=== PATIENT | female | born 1990 | race American Indian/Alaskan Native ===

== ENCOUNTER 2017-10-04 20:55 | Emergency (ER) | payer MEDICAID ==
[2017-10-04 20:55] VITALS: BMI 24.5
[2017-10-04 21:16] VITALS: BP 116/73; PULSE 75; RESP 20; TEMP 98.9; O2SAT 99
--- NOTE | 2017-10-04 22:03 | C.PDOC ---
History Of Present Illness 26 y/o female with hx asthma c/o left sided upper back pain since Saturday (6 days ), intermittent shortness of breath (sometimes at rest, sometimes with exertion) , and dizzy sensation like things spinning in head) . pt seen at another hospital for same on and told she had uri and to take Tylenol. pt denies any heavy lifting or trauma.. pt had onset cp, sob, dizziness, and back pain tonight, all of which have now resolved. denies any ocp use., no leg pain or swelling. no recent prolonged immobilization. no recent surgery. Time Seen by Provider: 10/04/17 21:20 Chief Complaint (Nursing): Back Pain History Per: Patient History/Exam Limitations: no limitations Onset/Duration Of Symptoms: Days (6), Intermittent Episodes Current Symptoms Are (Timing): Gone Quality Of Discomfort: Sharp Severity: Moderate Previous Symptoms: Back Pain Associated Symptoms: None Past Medical History Vital Signs: Last Vital Signs Temp 98.9 F 10/04/17 21:10 Pulse 75 10/04/17 21:10 Resp 20 10/04/17 21:10 BP 116/73 10/04/17 21:10 Pulse Ox 99 10/04/17 22:37 - Medical History PMH: Asthma Family History: States: Unknown Family Hx - Social History Hx Tobacco Use: Yes Hx Alcohol Use: No Hx Substance Use: No - Immunization History Hx Tetanus Toxoid Vaccination: No Hx Influenza Vaccination: No Hx Pneumococcal Vaccination: No Review Of Systems Constitutional: Positive for: Fever (subjective) ENT: Negative for: Ear Pain, Throat Pain Cardiovascular: Positive for: Chest Pain (resolved). Negative for: Palpitations Respiratory: Positive for: Cough, Shortness of Breath Gastrointestinal: Negative for: Nausea, Vomiting, Abdominal Pain, Diarrhea Skin: Negative for: Rash Neurological: Negative for: Weakness, Numbness Physical Exam - Physical Exam Appears: Non-toxic, No Acute Distress Skin: Warm, Diaphoretic Head: Atraumatic, Normacephalic Eye(s): bilateral: PERRL (pupils small, reactive) Ear(s): Bilateral: Normal Nose: No Discharge Oral Mucosa: Moist Cardiovascular: Rhythm Regular, No Murmur Respiratory: No Decreased Breath Sounds, No Accessory Muscle Use, No Rales, No Rhonchi, No Wheezing Gastrointestinal/Abdominal: Soft, No Tenderness Back: Normal Inspection, No CVA Tenderness, Other (mild tenderness left upper back, worse with movement left arm) Extremity: Normal ROM, No Tenderness, No Pedal Edema, No Calf Tenderness, No Swelling Pulses: Left Radial: Normal, Right Radial: Normal Neurological/Psych: Oriented x3, Normal Speech, Normal Cognition, Normal Motor, Normal Sensation ED Course And Treatment - Laboratory Results Urine POC: Negative ECG: Interpreted By Me, Viewed By Me ECG Rhythm: Sinus Rhythm ECG Interpretation: Normal, No Acute Changes Interpretation Of ECG: nsr,no st=-t changes O2 Sat by Pulse Oximetry: 99 Medical Decision Making Medical Decision Making: pt with intermittent upper left back pain, occasional sob, cough. subjective fevers. occasional dizziness and cp- none at present. Pt with normal ekg, nsr, and normal cxr. mild tenderess to palpation in left upper back. no nystagmus. will. d/c home with uri, f/u med clinic or pmd. Disposition Counseled Patient/Family Regarding: Diagnosis, Need For Followup - Disposition [facility] Disposition: HOME/ ROUTINE Disposition Time: 23:16 Condition: STABLE Additional Instructions: Take Tylenol every 4-6 hours for pain. You may alternate with Ibuprofen. Take muscle relaxant at bedtime, makes you sleepy. Follow up with your doctor or in medical clinic in a few days,. Return for any worse symptoms. Prescriptions: Cyclobenzaprine [Cyclobenzaprine HCl] 10 mg PO HS #6 tab Instructions: Muscle Strain, Viral Upper Respiratory Infection, Adult (DC) Forms: [facility] (Norwegian), General Discharge Instructions - Clinical Impression Clinical Impression: Thoracic back sprain, Upper respiratory infection
--- NOTE | 2017-10-04 22:39 | RAD ---
EXAM: XR Chest, 2 Views CLINICAL HISTORY: 26 years old, female; Pain; Chest pain; Right-sided chest pain; Additional info: Left back pain. Chest pain TECHNIQUE: Frontal and lateral views of the chest. COMPARISON: No relevant prior studies available. FINDINGS: Lungs: Unremarkable. No consolidation. Pleural space: Unremarkable. No pneumothorax. Heart: Unremarkable. No cardiomegaly. Mediastinum: Unremarkable. Bones/joints: Unremarkable. IMPRESSION: No acute findings.
--- NOTE | 2017-10-07 12:36 | CARD ---
APPROVED REPORT EKG Measurement Heart [id number] <Conclusion> Normal sinus rhythm Normal ECG
== END 2017-10-04 23:28 | disposition home or self-care (01) ==
LOC: C.ER 20:55
DX: J06.9 Acute upper respiratory infection, unspecified (principal); S23.3XXA Sprain of ligaments of thoracic spine, initial encounter; X58.XXXA Exposure to other specified factors, initial encounter; Y92.9 Unspecified place or not applicable

== ENCOUNTER 2017-12-29 10:09 | Emergency (ER) | payer MEDICAID ==
[2017-12-29 10:09] VITALS: BMI 24.5
[2017-12-29 10:14] VITALS: RESP 18; O2SAT 100
--- NOTE | 2017-12-29 10:37 | C.PDOC ---
History Of Present Illness 27-year-old female presents to the emergency department with complaints of sore throat associated with pain with swallowing and subjective fever that started this morning. Patient has not taken anything for pain at home. She denies nausea/vomiting, back/neck pain, dizziness, chest pain, palpitations, SOB or any other associated symptoms. Time Seen by Provider: 12/29/17 10:17 Chief Complaint (Nursing): ENT Problem History Per: Patient History/Exam Limitations: None Onset/Duration Of Symptoms: Hrs Current Symptoms Are (Timing): Still Present Symptoms Have Been: Continuous Severity: Mild Past Medical History Reviewed: Historical Data, Nursing Documentation, Vital Signs Vital Signs: Last Vital Signs Temp 99.2 F 12/29/17 11:04 Pulse 90 12/29/17 11:04 Resp 18 12/29/17 11:04 BP 114/68 12/29/17 11:04 Pulse Ox 100 12/29/17 11:04 - Medical History PMH: Asthma Family History: States: No Known Family Hx - Social History Hx Tobacco Use: Yes Hx Alcohol Use: No Hx Substance Use: No - Immunization History Hx Tetanus Toxoid Vaccination: No Hx Influenza Vaccination: No Hx Pneumococcal Vaccination: No Review Of Systems Constitutional: Positive for: Fever (subjective) ENT: Positive for: Throat Pain (difficulty swallowing). Negative for: Ear Pain , Nose Congestion, Throat Swelling Cardiovascular: Negative for: Chest Pain, Palpitations Respiratory: Negative for: Cough, Shortness of Breath Gastrointestinal: Negative for: Vomiting Skin: Negative for: Rash Neurological: Negative for: Headache, Dizziness Physical Exam - Physical Exam Appears: Well, Non-toxic, No Acute Distress Skin: Normal Color, Warm, Dry, No Rash Eye(s): bilateral: Normal Inspection Nose: Normal Oral Mucosa: Moist Tongue: Normal Appearing, No Swelling Lips: Normal Appearing, No Swelling Throat: Erythema, No Exudate, No Drooling, Other (uvula midline and normal in appearance ) Neck: Normal, Normal ROM, Supple Cardiovascular: Rhythm Regular Respiratory: Normal Breath Sounds, No Rales, No Rhonchi, No Wheezing Extremity: Normal ROM Neurological/Psych: Oriented x3 ED Course And Treatment O2 Sat by Pulse Oximetry: 100 (RA) Pulse Ox Interpretation: Normal Progress Note: Patient given PO tylenol in ED. Rx for chloraseptic spray given to patient. She was instructed to follow up with PMD/clinic in 1-2 days. She understands she should return to ED if symptoms worsen. Reevaluation Time: 10:35 Reassessment Condition: Improved Disposition Counseled Patient/Family Regarding: Studies Performed, Diagnosis, Need For Followup, Rx Given - Disposition Referrals: Marcy Aldridge MD [Medical Doctor] - Disposition: HOME/ ROUTINE Disposition Time: 10:40 Condition: STABLE Additional Instructions: USE IBUPROFEN OR TYLENOL FOR PAIN, FEVER DRINK PLENTY OF FLUIDS AND GET REST FOLLOW UP WITH YOUR DOCTOR IN 1-2 DAYS RETURN TO ER IF SY,PTOMS WORSEN Instructions: Sore Throat, Adult (DC), Viral Pharyngitis (DC) Forms: [employer] (Belizean) Print Language: LUXEMBOURGISH - POA Present On Arrival: None - Clinical Impression Clinical Impression: Viral upper respiratory illness, Viral pharyngitis - Scribe Statement The provider has reviewed the documentation as recorded by the Scribe (Tracy Martinez) All medical record entries made by the Scribe were at my direction and personally dictated by me. I have reviewed the chart and agree that the record accurately reflects my personal performance of the history, physical exam, medical decision making, and the department course for this patient. I have also personally directed, reviewed, and agree with the discharge instructions and disposition.
[2017-12-29 11:05] VITALS: BP 114/68; PULSE 90; TEMP 99.2
== END 2017-12-29 11:05 | disposition home or self-care (01) ==
LOC: C.ER 10:09
DX: J02.9 Acute pharyngitis, unspecified (principal)

== ENCOUNTER 2017-12-31 11:09 | Emergency (ER) | payer MEDICAID ==
[2017-12-31 11:09] VITALS: BMI 24.5
[2017-12-31] MEDS ORDERED: cefTRIAXone (Rocephin) 250 mg Inj IM STA (11:49)
[2017-12-31] MEDS ORDERED: Penicillin G Benzathine 1.2 Mill Unit/2 ml Syr IM ONE ×2 (11:50→12:22)
--- NOTE | 2017-12-31 12:21 | C.PDOC ---
History Of Present Illness 27yo female, otherwise well, presents to ED with complaints of fever, sore throat, abdominal cramping, nausea and diarrhea. Patient states as of yesterday , she also has vaginal discharge; patient states she might have been exposed to STD's. Patient states the pain is 10/10 and she is unable to tolerate PO intake. She denies any headache, chest pain, shortness of breath, cough, or rhinorrhea. PMD: Marcy Aldridge Time Seen by Provider: 12/31/17 11:36 Chief Complaint (Nursing): Fever History Per: Patient History/Exam Limitations: no limitations Onset/Duration Of Symptoms: Days Current Symptoms Are (Timing): Still Present Location Of Pain: Throat Associated Symptoms: Fever, Sore Throat Additional History Per: Patient Past Medical History Reviewed: Historical Data, Nursing Documentation, Vital Signs Vital Signs: Last Vital Signs Temp 99.8 F H 12/31/17 12:45 Pulse 98 H 12/31/17 12:45 Resp 20 12/31/17 12:45 BP 100/66 12/31/17 12:45 Pulse Ox 100 12/31/17 12:45 - Medical History PMH: Asthma, Seizures ( A CHILD) Surgical History: No Surg Hx Family History: States: No Known Family Hx, Unknown Family Hx - Social History Hx Tobacco Use: Yes Hx Alcohol Use: No Hx Substance Use: No - Immunization History Hx Tetanus Toxoid Vaccination: No Hx Influenza Vaccination: No Hx Pneumococcal Vaccination: No Review Of Systems Except As Marked, All Systems Reviewed And Found Negative. Constitutional: Positive for: Fever ENT: Positive for: Throat Pain Cardiovascular: Negative for: Chest Pain Respiratory: Negative for: Shortness of Breath Gastrointestinal: Positive for: Nausea, Abdominal Pain (cramping), Diarrhea Musculoskeletal: Negative for: Neck Pain Neurological: Negative for: Headache Physical Exam - Physical Exam Appears: Non-toxic, Other (ill appearing) Skin: Normal Color, Warm, Dry Head: Atraumatic, Normacephalic Eye(s): bilateral: Normal Inspection, PERRL, EOMI Ear(s): Bilateral: Normal Throat: Erythema, Exudate, Other (4+ tonsilar edema) Neck: Normal ROM, Supple Lymphatic: Adenopathy (cervical) Chest: Symmetrical Cardiovascular: Rhythm Regular Respiratory: Normal Breath Sounds, No Wheezing Gastrointestinal/Abdominal: Normal Exam, Soft, No Tenderness Neurological/Psych: Oriented x3 ED Course And Treatment O2 Sat by Pulse Oximetry: 98 (RA) Pulse Ox Interpretation: Normal Medical Decision Making Medical Decision Making: Impression: URI, strep throat Plan: -- Tylenol 975 mg PO -- Zithromax 1000mg PO -- Rocephin 250mg IM -- Motrin 600mg PO -- Bicelin IM Time: 1219 Patient reports improvement in pain and is stable for discharge home. Instructed to follow up with PMD in 2-3 days. Disposition Counseled Patient/Family Regarding: Diagnosis, Need For Followup, Rx Given - Disposition Referrals: [facility] [Outside] Disposition: HOME/ ROUTINE Disposition Time: 12:19 Condition: STABLE Additional Instructions: Follow up with your doctor or our clinic. Prescriptions: Ibuprofen [Motrin] 600 mg PO TID #15 tab Instructions: Strep Throat (DC) Forms: General Discharge Instructions, [facility] (Armenian), Work Excuse - POA Present On Arrival: None - Clinical Impression Clinical Impression: Fever, Influenza-like illness, Strep pharyngitis, STD exposure - Scribe Statement The provider has reviewed the documentation as recorded by the Scribe (Darlyn Wadsworth) Provider Attestation: All medical record entries made by the Scribe were at my direction and personally dictated by me. I have reviewed the chart and agree that the record accurately reflects my personal performance of the history, physical exam, medical decision making, and the department course for this patient. I have also personally directed, reviewed, and agree with the discharge instructions and disposition.
[2017-12-31 12:46] VITALS: BP 100/66; PULSE 98; RESP 20; TEMP 99.8
[2017-12-31 13:18] VITALS: O2SAT 98
== END 2017-12-31 12:57 | disposition home or self-care (01) ==
LOC: C.ER 11:09
DX: J11.1 Influenza due to unidentified influenza virus with other respiratory manifestations (principal); R50.9 Fever, unspecified; Z20.2 Contact with and (suspected) exposure to infections with a predominantly sexual mode of transmission
CPT/HCPCS: 96372; 99285; J0561; J0696

== ENCOUNTER 2018-01-01 21:01 | Emergency (ER) | payer MEDICAID ==
[2018-01-01 21:02] VITALS: BMI 24.5
[2018-01-01 21:35] VITALS: O2SAT 100
[2018-01-01] MEDS ORDERED: Sodium Chloride 0.9% 1,000 ML IV ONE (22:02)
--- NOTE | 2018-01-01 22:02 | C.PDOC ---
Time Seen by Provider: 01/01/18 22:02 Chief Complaint (Nursing): Abdominal Pain Past Medical History Vital Signs: Last Vital Signs Temp 99 F 01/01/18 21:30 Pulse 102 H 01/01/18 21:30 Resp 20 01/01/18 21:30 BP 107/67 01/01/18 21:30 Pulse Ox 100 01/01/18 21:30 - Medical History PMH: Asthma, Seizures ( A CHILD) Family History: States: Unknown Family Hx - Social History Hx Tobacco Use: Yes Hx Alcohol Use: No Hx Substance Use: No - Immunization History Hx Tetanus Toxoid Vaccination: No Hx Influenza Vaccination: No Hx Pneumococcal Vaccination: No ED Course And Treatment O2 Sat by Pulse Oximetry: 100 Disposition Counseled Patient/Family Regarding: Studies Performed, Diagnosis - Disposition Disposition Time: 22:02
[2018-01-01 22:19] LABS: BASO % 0.4 % (0.0-2.0); EOS % 0.2 % (0.0-4.0); HEMOGLOBIN 14.2 g/dL (11.0-16.0); LYMPH # 1.7 K/uL (1.0-4.3); LYMPH % 18.8 % (20.0-40.0); MEAN CELL VOLUME 88.1 fL (81.0-99.0); MEAN CORPUSCULAR HEMOGLOBIN 30.9 pg (27.0-31.0); MEAN CORPUSCULAR HGB CONC 35.1 g/dL (33.0-37.0); MEAN PLATELET VOLUME 8.7 fL (7.2-11.7); MONO # 0.9 K/uL (0.0-0.8); MONO % 9.9 % (0.0-10.0); NEUT # 6.4 K/uL (1.8-7.0); NEUT % 70.7 % (50.0-75.0); NRBC % 0.1 % (0.0-2.0); RBC 4.59 Mil/uL (3.80-5.20); RED CELL DISTRIBUTION WIDTH 13.1 % (11.5-14.5)
[2018-01-01 22:26] LABS: HCG,QUALITATIVE URINE NEGATIVE (NEGATIVE); SQUAMOUS EPITHIAL 2 /hpf (0-5); URINE BACTERIA OCC (<OCC); URINE BILIRUBIN NEGATIVE (NEGATIVE); URINE BLOOD 2+ (NEGATIVE); URINE CLARITY Hazy (Clear); URINE COLOR Yellow (YELLOW); URINE GLUCOSE (UA) NORMAL (Normal); URINE LEUKOCYTE ESTERASE NEG Leu/uL (Negative); URINE PROTEIN NEGATIVE (NEGATIVE); URINE UROBILINOGEN NORMAL mg/dL (0.2-1.0)
[2018-01-01 22:33] LABS: ALBUMIN 4.4 g/dL (3.5-5.0); ALT/SGPT 26 U/L (9-52); AST/SGOT 28 U/L (14-36); BLOOD UREA NITROGEN 8 mg/dL (7-17); CALCIUM 9.7 mg/dl (8.6-10.4); GFR AFRICAN-AMERICAN > 60; GFR NON-AFRICAN AMERICAN > 60; LIPASE 91 U/L (23-300)
--- NOTE | 2018-01-01 22:33 | C.PDOC ---
History Of Present Illness 27 year old female presents to the ED for evaluation of persistent vomiting and diarrhea which began 2 days ago. Patient was evaluated in this ED for similar complaints as well as possible STD on 12/31 and was given Bicillin, Zithromax, and Rocephin. Patient notes her vomiting and diarrhea have continued today and she has abdominal cramping. She also reports a fever last night and some blood in her stool this morning. She denies any other complaints at this time. Time Seen by Provider: 01/01/18 22:02 Chief Complaint (Nursing): Abdominal Pain History Per: Patient History/Exam Limitations: no limitations Onset/Duration Of Symptoms: Hrs Current Symptoms Are (Timing): Still Present Location Of Pain/Discomfort: Diffuse Quality Of Discomfort: Cramping, "Pain" Associated Symptoms: Fever, Vomiting, Diarrhea Last Bowel Movement: Today Additional History Per: Patient Abnormal Vaginal Bleeding: No Past Medical History Reviewed: Historical Data, Nursing Documentation, Vital Signs Vital Signs: Last Vital Signs Temp 99 F 01/01/18 21:30 Pulse 102 H 01/01/18 21:30 Resp 20 01/01/18 21:30 BP 107/67 01/01/18 21:30 Pulse Ox 100 01/01/18 23:35 - Medical History PMH: Asthma, Seizures ( A CHILD) Surgical History: No Surg Hx Family History: States: Unknown Family Hx - Social History Hx Tobacco Use: Yes Hx Alcohol Use: No Hx Substance Use: No - Immunization History Hx Tetanus Toxoid Vaccination: No Hx Influenza Vaccination: No Hx Pneumococcal Vaccination: No Review Of Systems Constitutional: Positive for: Fever Gastrointestinal: Positive for: Vomiting, Abdominal Pain, Diarrhea, Other ( blood in stool ) Physical Exam - Physical Exam Appears: Non-toxic, No Acute Distress Skin: Normal Color, Warm, Dry Head: Atraumatic, Normacephalic Eye(s): bilateral: Normal Inspection Oral Mucosa: Moist Neck: Supple Chest: Symmetrical, No Deformity, No Tenderness Cardiovascular: Rhythm Regular, No Murmur Respiratory: Normal Breath Sounds, No Rales, No Rhonchi, No Wheezing Gastrointestinal/Abdominal: Soft, No Tenderness, No Guarding, No Rebound Extremity: Normal ROM, Capillary Refill (less than 2 seconds ) Neurological/Psych: Oriented x3, Normal Speech, Normal Cognition ED Course And Treatment - Laboratory Results Result Diagrams: 01/01/18 22:15 01/01/18 22:15 Lab Interpretation: No Acute Changes O2 Sat by Pulse Oximetry: 100 (on RA) Pulse Ox Interpretation: Normal Progress Note: Bloodwork and urinalysis ordered and reviewed. Zofran IVP and IV Fluids administered. Reevaluation Time: 23:46 Reassessment Condition: Improved Disposition Counseled Patient/Family Regarding: Studies Performed, Diagnosis, Need For Followup - Disposition Referrals: [facility] [Outside] Disposition: HOME/ ROUTINE Disposition Time: 23:46 Condition: IMPROVED Instructions: Nausea and Vomiting, Adult (DC), Diarrhea in Adolescents and Adults Forms: [employer] (French) - Clinical Impression Clinical Impression: Vomiting, Diarrhea, Abdominal pain - Scribe Statement The provider has reviewed the documentation as recorded by the Scribe (Kimberli Campbell) Provider Attestation: All medical record entries made by the Scribe were at my direction and personally dictated by me. I have reviewed the chart and agree that the record accurately reflects my personal performance of the history, physical exam, medical decision making, and the department course for this patient. I have also personally directed, reviewed, and agree with the discharge instructions and disposition.
[2018-01-01 23:50] LABS: INR 1.2; PROTHROMBIN TIME 13.1 SECONDS (9.7-12.2)
[2018-01-02 00:28] VITALS: BP 106/71; PULSE 68; RESP 18; TEMP 99.1
== END 2018-01-02 01:06 | disposition home or self-care (01) ==
LOC: C.ER 21:01
DX: R11.10 Vomiting, unspecified (principal); R19.7 Diarrhea, unspecified; R10.9 Unspecified abdominal pain
CPT/HCPCS: 80053; 81001; 83690; 84703; 85025; 85610; 85730; 96361; 96374; 99283; J2405; J7040